=== PATIENT | male | born 2005 | race Caucasian/White ===

== ENCOUNTER 2024-07-07 23:38 | Emergency (ER) | payer MEDICAID ==
[~2024-07-07] VITALS: Ht 175.3 cm; Wt 60.0 kg
[2024-07-08 00:01] VITALS: BP 120/70; RESP 14; TEMP 98.2; O2SAT 74
[2024-07-08 00:05] VITALS: PULSE 94; O2SAT 99
[2024-07-08] MEDS ORDERED: LIDO700A15 TP (00:42)
[2024-07-08] MEDS ORDERED: NAPR-1176 MT (00:42)
== END 2024-07-08 01:15 | disposition home or self-care (01) ==
LOC: ER 23:38
DX: S60.221A Contusion of right hand, initial encounter (principal); M25.531 Pain in right wrist; W18.39XA Other fall on same level, initial encounter; Y93.66 Activity, soccer; Y92.89 Other specified places as the place of occurrence of the external cause; Y99.8 Other external cause status
CPT/HCPCS: 73130; 99283

== ENCOUNTER 2024-12-23 20:16 | Emergency (ER) | payer MEDICAID ==
[~2024-12-23] VITALS: Ht 170.2 cm; Wt 147.0 kg
[~2024-12-23 20:16] MED LIST: LIDO700A15 TP; NAPR-1176 MT
[2024-12-23 21:29] VITALS: O2SAT 99
[2024-12-23 23:26] LABS: CLARITY URINE CLEAR (CLEAR); COLOR URINE YELLOW (YELLOW); GLUCOSE URINE NEGATIVE (NEGATIVE); KETONES URINE TRACE (NEGATIVE); LEUKOCYTE ESTERASE URINE NEGATIVE (NEGATIVE); NITRITE URINE NEGATIVE (NEGATIVE); OCCULT BLOOD URINE NEGATIVE (NEGATIVE); PROTEIN URINE NEGATIVE (NEGATIVE); SPECIFIC GRAVITY URINE 1.025 (1.005-1.030)
[2024-12-23] MEDS ORDERED: IBUP-2029 MT (23:36)
[2024-12-24] MEDS: KETOROLAC 30MG/ML VIAL IM ONE (00:12)
[2024-12-24 00:15] VITALS: BP 121/62; PULSE 70; RESP 18; TEMP 36.8; O2SAT 99
== END 2024-12-24 00:17 | disposition home or self-care (01) ==
LOC: ER 20:16
DX: M54.6 Pain in thoracic spine (principal); Z79.1 Long term (current) use of non-steroidal anti-inflammatories (NSAID); Z79.899 Other long term (current) drug therapy
CPT/HCPCS: 99284; 71045; 81003; 96372; J1885